=== PATIENT | male | born 1970 | race Caucasian/White ===

== ENCOUNTER 2023-10-29 10:45 | Outpatient (RCR) | payer BC, SELFPAY ==
--- NOTE | 2023-10-28 10:45 | ECG_ITS ---
Measurements Intervals [place] Rate: 68 P: 39 [place]: 191 QRS: -4 QRSD: 89 T: 19 QT: 376 QTc: 402 Interpretive Statements SINUS RHYTHM INFERIOR INFARCT, AGE INDETERMINATE BASELINE ARTIFACT- I, II, AVR, AVL, AVF ABNORMAL ECG NO PREVIOUS ECG AVAILABLE FOR COMPARISON Electronically Signed On 10-28-2023 11:32:57 ARTIST REPRESENTATIVE by Vic Shea D.O.
[2023-10-28 12:08] LABS: Partial Thromboplastin Time 28.3 SECONDS (22.3-36.8)
[2023-10-28 12:09] LABS: Alanine Aminotransferase 19 U/L (6-50); Albumin Level 4.6 g/dL (3.5-5.1); Alkaline Phosphatase 100 U/L (38-126); Anion Gap 5 mmol/L (8-16); Aspartate Amino Transferase 28 U/L (17-59); Bilirubin,Total 1.5 mg/dL (0.2-1.3); Blood Urea Nitrogen 11 mg/dL (9-20); Calcium 9.4 mg/dL (8.4-10.2); Carbon Dioxide 30 mmol/L (22-30); Chloride 99 mmol/L (98-107); Estimated Glomerular Filt Rate > 60; Glucose 96 mg/dL (65-110); Potassium 4.9 mmol/L (3.4-5.0); Sodium 134 mmol/L (137-145)
[2023-10-28 12:26] LABS: Basophils Percent Auto 0.3 % (0.2-1.2); Eosinophils Absolute Auto 0.1 K/mm3 (0-0.3); Eosinophils Percent Auto 0.7 % (0-4.4); Hematocrit 41.5 % (42.0-52.0); Hemoglobin 13.7 g/dL (14.0-18.0); Immature Granulocyte Absolute 0.04 K/mm3 (0.00-0.031); Immature Granulocyte Percent A 0.3 % (0-0.5); Lymphocytes Absolute Auto 8.02 K/mm3 (0.9-3.2); Lymphocytes Percent Auto 55.2 % (18.3-44.2); Mean Corpuscular Hemoglobin 32.1 pg (26-34); Mean Corpuscular Volume 97.2 fl (80-100); Mean Platelet Volume 9.8 fl (7.4-10.4); Monocytes Absolute Auto 0.6 K/mm3 (0.1-0.6); Monocytes Percent Auto 4.1 % (2.6-8.5); Neutrophils Absolute Auto 5.8 K/mm3 (1.3-6.7); Neutrophils Percent Auto 39.4 % (45.5-73.1); Platelet Count Result 309 k/mm3 (150-375); Red Blood Count 4.27 M/mm3 (4.6-6.20); Red Cell Distribution Width 12.5 % (11.5-14.5); White Blood Count 14.5 K/mm3 (4.5-10.0)
== END 2024-01-26 23:59 | disposition home or self-care (01) ==
LOC: ANHSURGERY 10:45
PROVIDERS: PCP Family Medicine; Visit Provider Urology
DX: C61 Malignant neoplasm of prostate (principal)
CPT/HCPCS: 36415; 80053; 81479; 85025; 85610; 85730; 86850; 86860; 86870; 86880; 86900; 86901; 86902; 86971; 86978; 87086; 93005

== ENCOUNTER 2023-11-09 00:14 | Day surgery (SDC) | payer BC, SELFPAY ==
[2023-10-28 10:06] VITALS: BP 144/91; PULSE 69; RESP 16; TEMP 36.9; O2SAT 100; BMI 28.8
--- NOTE | 2023-10-28 10:22 | PC.NURSE ---
Report to the Outpatient Waiting Room, entrance under the green pavilion located off [facility], at time __6:00AM on date ___11/09/23____. Planned Procedure Time: __7:30AM . Time changes happen often and if your time is changed the preop area will call you the afternoon before. - You and your visitor will be asked to self-screen and do not enter if you have any COVID symptoms. - A mask is optional within the hospital at this time. Patients may have clear liquids (water, carbonated beverages, clear teas, apple juice) until 3 hours prior to surgery with a maximum of 20 ounces. - No food from midnight until time of surgery. Take the following medications with a SIP of water the morning of surgery: ____NONE DO NOT STOP ANY OF YOUR OTHER PRESCRIPTION MEDICATIONS PRIOR TO SURGERY ?EXCEPT THE FOLLOWING Medications to discontinue per physician NONE Date to take last dose Please no make-up, nail turkish, hairspray, perfume, deodorant, or body powder the day of surgery. No jewelry (including any body piercings) or valuables the day of surgery, leave them at home. Please take a shower or bath the night before, or the morning of, surgery with an antibacterial soap. Wear comfortable, loose fitting clothing. - Jewelry must be removed prior to entering the operating room. Rings and piercings that are not removed may be cut off. - The hospital will not accept responsibility for valuables. - Please leave all valuables, including medications, at home the day of surgery. If you are going home after surgery, a licensed retail delivery driver must drive you home. - NO public transportation without another adult if you receive anesthesia. - We recommend that an adult stay with you for 24 hours following discharge. - We also recommend that you do not drive, make important decision, drink alcoholic beverages, or take any drugs that were not prescribed by your health care provider for at least 24 hours after your discharge time. Follow any additional instructions given to you from your surgeon. If you or anyone in your household have experienced Covid symptoms in the past week, please notify your surgeon or the nurse liaison at the phone number below for possible testing. Telephone instructions given to ___PATIENT and asked if any additional questions and then verbalized understanding. Patient advised to call surgeon office or pre surgery nurse liaison [phone] if any additional questions.
--- NOTE | 2023-11-08 15:26 | P.PNAN_ITS ---
Anes - Initial Pre Proc Eval Procedure: Operation Date: 11/09/23 07:30 Proposed Procedures p Robotic Assisted Nerve Sparing Prostatectomy with Possible Pelvic Lymph Node Dissection - Ariel Maddox MD s Flexible Cystoscopy - Ariel Maddox MD Date/Time: 11/08/23 15:26 Surgeon: Ariel Maddox MD Pre Op Diagnosis: Prostate Ca Patient Data Age: 53 Gender: M Height: 1.8 m Weight: 93.9 kg Last Vital Signs Temp 98.4 F 10/28/23 10:06 Pulse 69 10/28/23 10:06 Resp 16 10/28/23 10:06 BP 144/91 H 10/28/23 10:06 Pulse Ox 100 10/28/23 10:06 O2 Del Method Room Air 10/28/23 10:06 Allergies Allergy/AdvReac Type Severity Reaction Status Date / Time No Known Allergies Allergy Unverified 11/09/23 06:05 Home Medications Medication Instructions Recorded Confirmed Type sildenafil 100 mg tablet 100 mg PO ONCE PRN Sexual Activity 10/28/23 11/09/23 History Patient hx anesthesia problems: none Family hx anesthesia problems: none Results Review: All pre-operative results and documents have been reviewed as part of the pre- operative evaluation. [facility] Social History Social History Smoking status: Current some day smoker Additional smoking assessment comments: CURRENTLY SMOKING 3-4 CIG/WEEK. HX- SMOKED APPROX 2 CIG/DAY X 8 YEARS. Alcohol intake: current Drinks per week: 10 Living arrangements: with family Additional living arrangements comments: AND CHILDREN Spiritual care concerns: No Anes - Eval Final PreProcedure Day of Procedure 11/08/23 15:26 Patient weight: normal Heart: regular rate and rhythm Lungs: clear to auscultation Airway: Mallampati scale class II Neurological: alert and oriented Last oral intake: >/= 8 hours ASA classification: III Emergent: no Anesthetic plan: proceed Anesthesia type and monitoring: general ETT and standard monitoring Results Review: All pre-operative results and documents have been reviewed as part of the pre- operative evaluation. Informed Consent: The patient's anesthetic plan and its attendant risks and benefits were discussed with the patient/family/POA. Questions were solicited and answers provided to the satisfaction of the patient/family/POA.
[2023-11-09] VITALS (19 sets, daily range): BP systolic 101–149; BP diastolic 65–99; PULSE 67–98; RESP 12–18; TEMP 36.1–36.5; O2SAT 84–100
[2023-11-09] MEDS: LACTATED RINGERS 1,000 ML 30 ML IV CONT ×2 (06:20→12:37)
--- NOTE | 2023-11-09 07:14 | PM.IMHP ---
H&P: HPI History of Present Illness Date/Time: 11/09/23 07:14 Chief Complaint: adenocarcinoma of prostate Narrative: 53 yr old male with adenocarcinoma of prostate. Presents for flex cysto and robotic assist nerve sparing prostatectomy with possible plnd. Review of Systems Review of Systems: All systems reviewed & are unremarkable except as noted in HPI and below [facility] Social History Social History Smoking status: Current some day smoker Additional smoking assessment comments: CURRENTLY SMOKING 3-4 CIG/WEEK. HX-SMOKED APPROX 2 CIG/DAY X 8 YEARS. Alcohol intake: current Drinks per week: 10 Living arrangements: with family Additional living arrangements comments: AND CHILDREN Spiritual care concerns: No Meds Home Medications and Allergies Home Medications Medication Instructions Recorded Confirmed Type sildenafil 100 mg tablet 100 mg PO ONCE PRN Sexual Activity 10/28/23 11/09/23 History Allergies Allergy/AdvReac Type Severity Reaction Status Date / Time No Known Allergies Allergy Unverified 11/09/23 06:05 Vital Signs Vital Signs - 24 hr 11/09/23 05:57 Temperature 36.4 C Pulse Rate 91 Respiratory Rate 16 Blood Pressure 149/99 H Pulse Oximetry 100 Oxygen Delivery Room Air Exam Const: General: cooperative, healthy appearing and comfortable Eyes: General: appearance normal, both eyes and all related structures Neck: Neck: normal visual inspection Chest: Chest palpation & inspection: normal inspection of the chest Resp: Effort & Inspection: normal respiratory effort Cardio: Rate: regular rate Rhythm: regular rhythm GI: Inspection: normal to inspection Assessment and Plan Assessment and plan (1) Adenocarcinoma of prostate: Code(s): C61 - Malignant neoplasm of prostate Status: Acute Assessment and Plan: Proceed with flex cysto with robotic assist nerve sparing prostatectomy with possible plnd
--- NOTE | 2023-11-09 07:17 | WPDHPUPDATE1 ---
History and Physical Update Update Date/Time: 11/09/23 07:17 History and Physical has been reviewed, including an updated exam of the patient. There are NO changes in the patient's condition. Risks, benefits, and alternatives have been discussed and questions answered. Patient agrees to proceed with procedure. Proceed with flex cysto with robotic assist nerve sparing prostatectomy with possible plnd.
[2023-11-09] MEDS: ceFAZolin 2 GM/D5W 50 ML 2 GM/50 ML BAG IVPB (07:26)
[2023-11-09] MEDS: BUPivacaine HCL 0.5% 10 ML AMP 30 ML INFILTRATE (08:38)
[2023-11-09] MEDS: ceFAZolin SODIUM 1 GM VIAL IV PUSH (12:13)
--- NOTE | 2023-11-09 12:26 | P.OP_ITS ---
Procedure Note - Detailed Date of Procedure 11/09/23 Pre-op Diagnosis Prostate Ca Post-op Diagnosis Same Procedure Performed Flexible cystoscopy, robotic assisted nerve-sparing prostatectomy Surgeon Ariel Maddox MD Anesthesia General Description of Procedure Patient was taken the operative suite correctly identified. Once anesthesia was obtained was placed in low-lying dorsal lithotomy position and prepped draped usual sterile fashion. Sixteen Kittitian flexible scope was inserted in the bladder. There were no tumors noted prostate did not have a median lobe. Sixteen Kittitian Patel catheter was then placed. A supraumbilical l incision was made and carried down to the rectus fascia. I did not feel comfortable with where the Veress needle felt going in. As such I did a cutdown and placed the cannula and directly. Camera was inserted. Other working ports were placed in appropriate locations. Placed in was placed in Trendelenburg position. The robot was docked. Patient had adhesions along his left colon. These were taken down. Posterior approach was then performed. Seminal vesicles were dissected down their tired he. The vas is were very calcified feeling bilaterally. The plane between the prostate and rectum was developed. The bladder was then taken down. Space of Retzius was developed bilaterally. Puboprostatic were incised. Dorsal venous complex was isolated secured to pubic bone. The bladder neck was then opened anteriorly. This was then also done posteriorly. The fascia was then incised to expose the previously dissected seminal vesicles and vas. Pedicles were isolated using clips. Bilateral nerve-sparing was performed. The prostate was lifted off the rectum. Dorsal venous complex was transected. Urethra was also transected. Specimen was placed in Endo-Catch bag. Bilateral lymphadenectomy was performed with the boundaries being the external iliac vein, West's ligament, bifurcation of the vessels, and obturator nerve. Clips were placed proximally and distally. Surgicel was placed in the obturator fossa. Specimens were placed in the Endo-Catch bag also. The left node packet had a clip placed on it for identification. A Talib stitch was then placed. I did reconstruct the bladder neck slightly with 2-0 Vicryl in the 3 and 9:00 a.m. positions. The bladder neck was then reanastomosed to the urethral stump with good approximation of mucosa. IV lock suture was used. Says this was done circumferentially. Sixteen Kittitian Patel was placed inflated with 10 cc sterile water. Bladder was filled with 200 cc without any evidence of extravasation. It irrigated freely. The robot was undocked and the specimen was brought out through the midline incision. Rectus fascia was closed using 0 Vicryl running fashion. Subcuticular stitches were placed. The incisions were anesthetized 1% lidocaine. All lap count needle count sponge counts were correct. Patient was taken recovery stable condition. This completes dictation. Please send a copy this to my office. Estimated Blood Loss 50 Drains Yes Packing No Pathology Yes Complications No immediate complications Condition Stable Disposition PACU
[2023-11-09] MEDS: fentaNYL CITRATE INJ (*CRX) 100 MCG/2 ML VIAL 25 MCG IV PUSH ×8 (13:08→16:27)
[2023-11-09] MEDS: PROPARACAINE HCL 0.5% 15 ML OPHTH SOLN 1 DROP EACH EYE (16:17)
--- NOTE | 2023-11-09 17:04 | PC.NURSE ---
This patient, Leighton Thakur, was admitted to [facility] Surg Room 324-02. Patient/family oriented to hospital policies and general routines including ID bracelet, bed and alarms, visiting hours, pain management, procedures, bathroom and other care routines, personal items, smoking policy, room service/diet, and visiting hours. Information on how to activate the Rapid Response Team has been discussed. Patient/Family are encouraged to report perceived risks to care and to ask questions if they do not understand what they are told or what they should do.
[2023-11-09] MEDS: LACTATED RINGERS 1,000 ML 125 ML IV CONT (17:47)
[2023-11-09] MEDS: DOCUSATE SODIUM 100 MG CAPSULE PO (17:47)
[2023-11-09] MEDS: ONDANSETRON INJ 4 MG/2 ML VIAL IV PUSH (17:55)
[2023-11-09] MEDS: MORPHINE SULFATE (*CRX) 2 MG/ML INJ 1 MG IV PUSH ×2 (18:13→22:17)
[2023-11-10] MEDS: HYDROcodone/acetaminophen (*CRX) 5-325 MG TABLET 2 TAB PO ×2 (00:59→06:31)
[2023-11-10] MEDS: HYOSCYAMINE SULFATE 0.125 MG TABLET SUBLINGUAL (00:59)
[2023-11-10] MEDS: MORPHINE SULFATE (*CRX) 2 MG/ML INJ 1 MG IV PUSH ×2 (01:57→10:58)
[2023-11-10] MEDS: LACTATED RINGERS 1,000 ML 125 ML IV CONT ×2 (01:57→10:03)
[2023-11-10 06:21] VITALS: BP 142/86; PULSE 64; RESP 18; TEMP 36.9; O2SAT 98
[2023-11-10 06:43] LABS: Hematocrit 30.9 % (42.0-52.0); Hemoglobin 12.1 g/dL (14.0-18.0)
[2023-11-10 07:19] LABS: Anion Gap 3 mmol/L (8-16); Blood Urea Nitrogen 10 mg/dL (9-20); Calcium 8.8 mg/dL (8.4-10.2); Carbon Dioxide 27 mmol/L (22-30); Chloride 99 mmol/L (98-107); Estimated CRCL calculation 97 ml/min; Estimated Glomerular Filt Rate > 60; Glucose 108 mg/dL (65-110); Potassium 3.9 mmol/L (3.4-5.0); Sodium 129 mmol/L (137-145)
--- NOTE | 2023-11-10 08:02 | WPDANESPN ---
Anes - Prog Note Post-Op Date/Time: 11/10/23 08:02 Cardiovascular status: normal Respiratory status: normal Airway patency: baseline Mental status: baseline Post-Op hydration status: normal Vital Signs: Last Vital Signs Temp 36.9 C 11/10/23 06:21 Pulse 64 11/10/23 06:21 Resp 18 11/10/23 06:21 BP 142/86 H 11/10/23 06:21 Pulse Ox 98 11/10/23 06:21 O2 Del Method Room Air 11/09/23 18:01 O2 Flow Rate 6 11/09/23 12:50 Pain Score (VAS): 0 I/O: Intake & Output 11/09/23 11/10/23 11/10/23 23:59 07:59 15:59 Intake Total 900 1350 Output Total 130 1740 Balance 770 -390 Laboratory Tests 11/10/23 06:07 11/10/23 06:07 11/10/23 06:07 Hgb 12.1 L Hct 30.9 L Sodium 129 L Potassium 3.9 Chloride 99 Carbon Dioxide 27 Anion Gap 3 L BUN 10 Creatinine 0.80 Estim Creat Clear Calc 97 Estimated GFR > 60 Glucose 108 Calcium 8.8 Post-procedural complaints: none Patient Feedback: Patient satisfied with anesthetic care.
--- NOTE | 2023-11-10 08:17 | WPDUROPN2 ---
Progress Note: A&P Assessment and Plan (1) Adenocarcinoma of prostate: Code(s): C61 - Malignant neoplasm of prostate Status: Acute Assessment and Plan: Doing well overall. Increase ambulation. If BETTY output minimal have that removed later this afternoon in discharged home with Patel catheter. Catheter cystogram in 1 week. Subjective Subjective Date/Time Seen: 11/10/23 08:17 Post Op day: 1 (Robotic assisted nerve-sparing prostatectomy with bilateral pelvic lymphadenectomy) Principal diagnosis: Adenocarcinoma of the prostate Interval history: Patient is doing well postoperative day 1. Has some typical postoperative pain. Urine is draining at this time BETTY with minimal output. Review of Systems Review of Systems: All systems reviewed & are unremarkable except as noted in HPI and below Exam Const: General: cooperative and comfortable Resp: Effort & Inspection: normal respiratory effort Cardio: Rate: regular rate Rhythm: regular rhythm GI: GI Palp: Yes Soft to palpation Urinary Catheter: Urinary Catheter: patent and draining and urine pink Objective Data Vital Signs Vital Signs: Vital Signs - 24 hr 11/09/23 12:37 11/09/23 12:50 11/09/23 13:05 Temperature 36.3 C L Pulse Rate 69 69 67 Respiratory Rate 18 14 14 Blood Pressure 105/65 101/70 110/73 Pulse Oximetry 100 100 98 Oxygen Delivery Simple Face Mask Simple Face Mask Room Air Oxygen Flow Rate 6 6 11/09/23 13:20 11/09/23 13:35 11/09/23 13:50 Temperature Pulse Rate 67 82 69 Respiratory Rate 14 14 14 Blood Pressure 124/91 H 123/78 120/81 Pulse Oximetry 96 100 97 Oxygen Delivery Room Air Room Air Room Air Oxygen Flow Rate 11/09/23 14:05 11/09/23 14:20 11/09/23 14:50 Temperature Pulse Rate 73 78 73 Respiratory Rate 12 12 13 Blood Pressure 115/79 124/83 115/81 Pulse Oximetry 100 99 98 Oxygen Delivery Room Air Room Air Room Air Oxygen Flow Rate 11/09/23 15:20 11/09/23 15:50 11/09/23 16:30 Temperature 36.1 C L Pulse Rate 82 81 87 Respiratory Rate 16 12 14 Blood Pressure 120/81 130/90 130/90 Pulse Oximetry 99 99 98 Oxygen Delivery Room Air Room Air Room Air Oxygen Flow Rate 11/09/23 18:01 11/09/23 16:56 11/09/23 17:12 Temperature 36.2 C L 36.3 C L Pulse Rate 98 82 Respiratory Rate 16 16 Blood Pressure 128/91 H 140/91 H Pulse Oximetry 99 99 98 Oxygen Delivery Room Air Oxygen Flow Rate 11/09/23 17:42 11/09/23 18:42 11/09/23 21:59 Temperature 36.3 C L 36.2 C L 36.5 C Pulse Rate 88 82 86 Respiratory Rate 16 18 18 Blood Pressure 135/93 H 137/94 H 130/90 Pulse Oximetry 84 L 98 100 Oxygen Delivery Oxygen Flow Rate 11/10/23 06:21 Temperature 36.9 C Pulse Rate 64 Respiratory Rate 18 Blood Pressure 142/86 H Pulse Oximetry 98 Oxygen Delivery Oxygen Flow Rate Intake/Output Intake/Output: Intake & Output 11/07/23 11/08/23 11/09/23 11/10/23 23:59 23:59 23:59 23:59 Intake Total 900 1350 Output Total 290 1740 Balance 610 -390 Meds/Results Medications: Active Medications Generic Name Dose Route Start Last Admin Trade Name Freq PRN Reason Stop Dose Admin Hydrocodone Bitart/Acetaminophen 1 tab 11/09/23 16:36 Hydrocodone/Acetaminophen (*Crx) 5-325 Mg Tablet PO Q6H PRN Pain Rated 1-3 Hydrocodone Bitart/Acetaminophen 2 tab 11/09/23 16:36 11/10/23 06:31 Hydrocodone/Acetaminophen (*Crx) 5-325 Mg Tablet PO 2 tab Q6H PRN Administration Pain Rated 4-6 Artificial Tears 1 drop 11/09/23 16:12 Artificial Tears Ophth Soln 15 Ml Bottle EACH EYE Q2H PRN Dry Eye(s) Docusate Sodium 100 mg 11/09/23 17:00 11/09/23 17:47 Docusate Sodium 100 Mg Capsule PO 100 mg BID PEDRO LUIS Administration Hyoscyamine 0.125 mg 11/09/23 16:36 11/10/23 00:59 Hyoscyamine Sulfate 0.125 Mg Tablet SUBLINGUAL 0.125 mg Q4H PRN Administration Bladder Spasm Lactated Ringer's 1,000 mls @ 125 mls/hr 11/09/23 16:36 02/0
[2023-11-10 09:15] VITALS: O2SAT 98
[2023-11-10] MEDS: levoFLOXacin 500 MG TABLET PO (09:15)
[2023-11-10] MEDS: DOCUSATE SODIUM 100 MG CAPSULE PO (09:15)
[2023-11-10 10:21] VITALS: BP 136/83; PULSE 60; RESP 18; TEMP 37.1; O2SAT 98
--- NOTE | 2023-11-10 13:36 | PM.DS ---
DS: Admitting Diagnosis Discharge Date 11/10/23 Admitting Diagnosis Adenocarcinoma of prostate DS: Discharge Diagnosis Discharge Diagnosis (1) Adenocarcinoma of prostate: Code(s): C61 - Malignant neoplasm of prostate Status: Acute Assessment and Plan: Underwent flexible cystoscopy with robotic assisted nerve-sparing prostatectomy on 11/09/[address] Maddox. He tolerated the procedure well and his pain is well controlled. He has been able to ambulate without difficulty. BETTY drain with minimal output and was removed on postoperative day 1. He will discharge home with his Bernal catheter in place. DS: Summary Hospital Course Hospital Course: Date of admission: 11/09/2023 Date of discharge: 11/10/2023 Leighton Thakur is a 53-year-old male with adenocarcinoma prostate presented to [facility] on 11/09/2023 in her to undergo flexible cystoscopy with robotic assisted nerve-sparing prostatectomy. Surgery was performed by Dr. Maddox. He tolerated the procedure well and his pain was well controlled following. He was able to ambulate without difficulty. He was able to tolerate his diet. His hemoglobin and hematocrit remained stable, as did his creatinine. BETTY drain was removed without difficulty. He will continue his Bernal catheter on discharge. Catheter teaching was provided by nursing staff. He was discharged with a one week course of Bactrim as well as tramadol for pain as needed. He has follow up scheduled with Dr. Maddox for 11/18/23 at which time his bernal catheter will be removed. He will obtain cystogram prior to this appointment. Orders provided. Discussed worrisome signs and symptoms for which to call or seek care and all questions were answered. Status at Discharge Functional status at discharge: independent ambulation Time Spent with Patient Time attestation: Total time spent providing and/or coordinating discharge services: 30 minutes Exam Narrative: General: Awake, alert, comfortable, no acute distress HEENT: Normocephalic, atraumatic, sclerae anicteric Respiratory: Normal respiratory effort, no accessory muscle use Abdomen: Nondistended, soft, nontender : BETTY drain with minimal serosanguineous output Skin: Normal coloration, warm and dry Neurologic: No focal neuro deficits noted Psychiatric: Appropriate mood and affect, judgment and insight intact DS: Data Data Completed and Pending Pending studies at discharge: Pending at discharge 11/09/23 11:19 Surgical [PTH] Routine Labs on day of discharge: Labs from last 24 hours 11/10/23 06:07 Hgb 12.1 L Hct 30.9 L Sodium 129 L Potassium 3.9 Chloride 99 Carbon Dioxide 27 Anion Gap 3 L BUN 10 Creatinine 0.80 Estim Creat Clear Calc 97 Estimated GFR > 60 Glucose 108 Calcium 8.8 Discharge Plan Discharge Patient Disposition: Home, Self-Care Stand Alone Forms: General Discharge Instructions Follow-up/Referrals: Ariel Maddox MD [Physician] - 11/18/23 2:00 pm Discharge Medications: New docusate sodium 100 mg Capsule 100 mg PO BID Qty: 20 0RF tramadol 50 mg tablet 50 mg PO Q6H PRN (Reason: moderate pain) Qty: 20 0RF sulfamethoxazole-trimethoprim [Bactrim DS] 800-160 mg tablet 1 tablet PO Q12H 7 Days Qty: 14 0RF Continued sildenafil 100 mg tablet 100 mg PO ONCE PRN (Reason: Sexual Activity)
== END 2023-11-10 15:30 | disposition home or self-care (01) ==
LOC: ANHSURGERY 05:46 → ANH3MEDSUR 16:38
PROVIDERS: PCP Family Medicine; Visit Provider Urology
PROC: 0VT04ZZ Resection of Prostate, Percutaneous Endoscopic Approach (ICD-10-PCS; CPT 55867; principal; 2023-11-09 07:30)
PROC: 0TJB8ZZ Inspection of Bladder, Via Natural or Artificial Opening Endoscopic (ICD-10-PCS; CPT 52000; 2023-11-09 07:30)
DX: C61 Malignant neoplasm of prostate (principal); F17.210 Nicotine dependence, cigarettes, uncomplicated
CPT/HCPCS: 55866; 38571; S2900; 36415; 80048; 85014; 85018; 88309; A9270; J0690; J1100; J1170; J2250; J2270; J2371; J2405; J2704; J3010; J7030; J7120

== ENCOUNTER 2023-11-18 12:38 | Outpatient (CLI) | payer BC, SELFPAY ==
--- NOTE | ~2023-11-18 | XR_ITS ---
EXAMINATION: XR cystogram DATE: 11/18/2023 13:04 INDICATION: Prostate cancer status post prostatectomy. TECHNIQUE: Water-soluble contrast was gravity-infused through the patient's Patel catheter. Multiple fluoroscopic images were obtained. Fluoroscopy exposure time was 0.3 minutes. The total number of edmund ges was 7. COMPARISON: None. FINDINGS: There is no extraluminal leakage of contrast. There is no ureteral reflux. IMPRESSION: 1. No extraluminal leakage of contrast. Reviewed, dictated and finalized at location A. [employer]PA[employer]
== END 2023-11-18 12:39 | disposition home or self-care (01) ==
PROVIDERS: PCP Family Medicine; Visit Provider Urology
DX: C61 Malignant neoplasm of prostate (principal)
CPT/HCPCS: 51600; 74430; Q9967